=== PATIENT | female | born 1995 | race Caucasian/White ===

== ENCOUNTER 2018-10-27 23:35 | Emergency (ER) | payer BC, MEDICAID ==
[2018-10-27 23:47] VITALS: BP 107/68
--- NOTE | 2018-10-27 23:58 | EDM.PDOC ---
ED HPI GENERAL MEDICAL PROBLEM - General Chief Complaint: ENT Problem Stated Complaint: EAR PAIN Time Seen by Provider: 10/27/18 23:39 Source of Information: Reports: Patient History Limitations: Reports: No Limitations - History of Present Illness INITIAL COMMENTS - FREE TEXT/NARRATIVE: The patient presents with left ear pain. She as had a cough, congestion and runny nose but no fever. Now she has left ear pain. She thinks she has an ear infections. She as no history of ear infections. Onset: Gradual Duration: Day(s): Location: Reports: Other (Left ear) Quality: Reports: Sharp Severity: Moderate Improves with: Reports: None Worsens with: Reports: None Associated Symptoms: Reports: Cough. Denies: Chest Pain, Fever/Chills, Headaches, Nausea/Vomiting, Shortness of Breath Left Ear Pain Score (Numeric/FACES): 8 - Related Data Allergies Allergy/AdvReac Type Severity Reaction Status Date / Time No Known Allergies Allergy Verified 10/27/18 23:48 Home Meds: Home Meds . [No Known Home Meds] 07/27/16 [History] Past Medical History - Past Health History Medical/Surgical History: Denies Medical/Surgical History Social & Family History - Tobacco Use Smoking Status *Q: Never Smoker - Caffeine Use Caffeine Use: Reports: Coffee, Energy Drinks, Soda, Tea - Recreational Drug Use Recreational Drug Use: Yes Drug Use in Last 12 Months: Yes Recreational Drug Type: Reports: Marijuana/Hashish ED ROS ENT - Review of Systems Review Of Systems: See Below Constitutional: Reports: No Symptoms HEENT: Reports: Ear Pain Respiratory: Reports: No Symptoms Cardiovascular: Reports: No Symptoms Endocrine: Reports: No Symptoms GI/Abdominal: Reports: No Symptoms : Reports: No Symptoms Musculoskeletal: Reports: No Symptoms ED EXAM, ENT - Physical Exam Exam: See Below Exam Limited By: No Limitations General Appearance: Alert, No Apparent Distress Ears: Normal External Exam, Normal Canal, TM Bulging (left), TM Erythema (left) , TM Fluid (left) Nose: Normal Inspection Mouth/Throat: Pharyngeal Erythema Head: Atraumatic, Normocephalic Neck: Normal Inspection Respiratory/Chest: No Respiratory Distress, Lungs Clear, Normal Breath Sounds Cardiovascular: Regular Rate, Rhythm, No Edema, No Murmur GI/Abdominal: Soft, Non-Tender, No Organomegaly, No Mass Back: Normal Inspection Extremities: Normal Inspection Neurological: Alert, Oriented, No Motor/Sensory Deficits Course - Vital Signs Last Recorded V/S: Last Vital Signs Temp 97.2 F 10/27/18 23:44 Pulse 60 10/27/18 23:44 Resp 18 10/27/18 23:44 BP 107/68 10/27/18 23:44 Pulse Ox 100 10/27/18 23:44 Departure - Departure Time of Disposition: 00:05 Disposition: Home, Self-Care 01 Condition: Good Clinical Impression: Viral URI Left otitis media Qualifiers: Otitis media type: suppurative Chronicity: acute Recurrence: non-recurrent Spontaneous tympanic membrane rupture: with spontaneous rupture Qualified Code(s ): H66.012 - Acute suppurative otitis media with spontaneous rupture of ear drum , left ear - Discharge Information *PRESCRIPTION DRUG MONITORING PROGRAM REVIEWED*: Not Applicable *COPY OF PRESCRIPTION DRUG MONITORING REPORT IN PATIENT EMERALD: Not Applicable Referrals: Arcelia Gutierrez, [employer] [Primary Care Provider] - Additional Instructions: Take tylenol or motrin for pain or for any fevers. Take the amoxicillin 1, 000mg 2 times per day until gone. Please return if you are worse.
== END 2018-10-28 00:05 | disposition home or self-care (01) ==
LOC: JD.ED 23:35
DX: H66.012 Acute suppurative otitis media with spontaneous rupture of ear drum, left ear (principal); J06.9 Acute upper respiratory infection, unspecified
CPT/HCPCS: 99282; 99283

== ENCOUNTER 2019-08-07 01:12 | Emergency (ER) | payer BC, MEDICAID ==
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
[2019-08-07 01:33] VITALS: BP 103/62; PULSE 62
[2019-08-07] MEDS ORDERED: fentaNYL 100 MCG/2 ML SDV IVPUSH ONE (01:43)
[2019-08-07] MEDS ORDERED: fentaNYL 100 MCG/2 ML SDV IM STA (01:52)
--- NOTE | 2019-08-07 12:02 | CR ---
Chest: Two views of the chest were obtained. Comparison: No prior chest x-ray is available. Heart size and mediastinum are normal. Lungs are clear. Mild scoliosis is noted within the spine. No acute bony abnormality is appreciated. Impression: 1. Scoliosis. 2. Nothing acute is appreciated on two-view chest x-ray. Diagnostic code #2 This report was dictated in [place] Standard Time
--- NOTE | 2019-08-07 12:28 | CR ---
Left ribs: Two views of the left ribs were obtained. Comparison: No prior rib exam. Slight deformity noted within the 10th rib. This is suspicious for fracture. No additional rib abnormality is definitely seen. No pneumothorax is noted. Impression: 1. Findings suspicious for fracture within the left 10th rib. Diagnostic code #3 This report was dictated in [place] Standard Time
== END 2019-08-07 03:06 | disposition home or self-care (01) ==
LOC: JD.ED 01:12
DX: S29.9XXA Unspecified injury of thorax, initial encounter (principal); W51.XXXA Accidental striking against or bumped into by another person, initial encounter; Y92.511 Restaurant or cafe as the place of occurrence of the external cause; Z79.899 Other long term (current) drug therapy
CPT/HCPCS: 71046; 71100; 96372; 99284; J3010; 99283

== ENCOUNTER 2021-09-13 14:36 | Emergency (ER) | payer BC ==
[2021-09-13 15:09] VITALS: BP 129/84; PULSE 72
[2021-09-13] MEDS ORDERED: Ondansetron 4 MG/2 ML SDV IVPUSH ONE (15:27)
[2021-09-13] MEDS ORDERED: Sodium Chloride 0.9% 1,000 ML IV STA (15:27)
[2021-09-13] MEDS ORDERED: Sodium Chloride 0.9% 10 ML Syringe FLUSH PRN (15:27)
[2021-09-13] MEDS ORDERED: HYDROmorphone 1 MG/ML Syringe IVPUSH ONE (15:29)
[2021-09-13] MEDS ORDERED: Iopamidol 612 MG/ML 100 ML Bottle IVPUSH ONE (15:50)
[2021-09-13] MEDS ORDERED: Diatrizoate Meglumine/Diatrizoate Sodium 37% 120 ML Bottle PO ONE (15:50)
[2021-09-13 16:18] LABS: CORONAVIRUS COVID-19 NAA POSITIVE (NEGATIVE)
--- NOTE | 2021-09-13 18:36 | EDM.PDOC ---
ED HPI GENERAL MEDICAL PROBLEM - General Chief Complaint: Abdominal Pain Stated Complaint: ABDOMINAL PAIN Time Seen by Provider: 09/13/21 15:01 Source of Information: Reports: Patient History Limitations: Reports: No Limitations - History of Present Illness INITIAL COMMENTS - FREE TEXT/NARRATIVE: The patient presents with upper abdominal pain. This has been going on for about 3 to 4 months but worse the past 3 to 4 days. She also had fever and chills the past couple of days with a slight cough. She was seen at the clinic and an US was done on the of her RUQ and it shows no problem with the gallbladder. She continued to have pain so she came back. She has no diarrhea. She does have some dysuria. She still has her gallbladder and appendix. She has a history of alopecia. Onset: Gradual Duration: Week(s): Location: Reports: Abdomen Quality: Reports: Sharp Severity: Moderate Improves with: Reports: None Worsens with: Reports: None Associated Symptoms: Reports: Cough, Fever/Chills, Nausea/Vomiting. Denies: Chest Pain, Headaches, Loss of Appetite, Shortness of Breath Right Upper Abdomen Pain Score (Numeric/FACES): 7 - Related Data Allergies Allergy/AdvReac Type Severity Reaction Status Date / Time No Known Allergies Allergy Verified 09/13/21 15:03 Home Meds: Home Meds Hydrocodone/Acetaminophen [Hydrocodone-Acetamin 5-325 mg] 1 - 2 each PO Q6H PRN #15 tablet 09/13/21 [Rx] Multivitamin [Multi-Vitamin Daily] 1 tab PO DAILY 09/13/21 [History] Ondansetron [Zofran ODT] 4 mg PO Q6H PRN #20 tab.dis 09/13/21 [Rx] Past Medical History - Past Health History Medical/Surgical History: Denies Medical/Surgical History HEENT History: Reports: Other (See Below) Other HEENT History: bloody noses. 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 Dermatologic History: Reports: Other (See Below) Other Dermatologic History: acne. - Infectious Disease History Infectious Disease History: Reports: Novel Coronavirus Social & Family History - Tobacco Use Tobacco Use Status *Q: Never Tobacco User Second Hand Smoke Exposure: No - Caffeine Use Caffeine Use: Reports: None - Alcohol Use Days Per Week of Alcohol Use: 2 Number of Drinks Per Day: 4 Total Drinks Per Week: 8 - Recreational Drug Use Recreational Drug Use: Yes Recreational Drug Type: Reports: Marijuana/Hashish Other Recreational Drug Type: medical marijuana Recreational Drug Use Frequency: Daily ED ROS GENERAL - Review of Systems Review Of Systems: See Below Constitutional: Reports: Fever, Chills HEENT: Reports: No Symptoms Respiratory: Reports: No Symptoms Cardiovascular: Reports: No Symptoms GI/Abdominal: Reports: Abdominal Pain : Reports: Dysuria Musculoskeletal: Reports: No Symptoms Skin: Reports: No Symptoms Neurological: Reports: No Symptoms ED EXAM, GI/ABD - Physical Exam Exam: See Below Exam Limited By: No Limitations General Appearance: Alert, No Apparent Distress Ears: Normal External Exam Nose: Normal Inspection Head: Atraumatic, Normocephalic Neck: Normal Inspection Respiratory/Chest: No Respiratory Distress, Lungs Clear, Normal Breath Sounds Cardiovascular: Regular Rate, Rhythm, No Edema, No Murmur GI/Abdominal Exam: Soft, Tender (Mild tenderness to the right upper abdomen) Back Exam: Normal Inspection Extremities: Normal Inspection Course - Vital Signs Last Recorded V/S: Last Vital Signs Temp 99.0 F 09/13/21 15:00 Pulse 72 09/13/21 15:00 Resp 16 09/13/21 15:00 BP 129/84 09/13/21 15:00 Pulse Ox 96 09/13/21 15:00 - Orders/Labs/Meds Orders: Active Orders 24 hr Category Date Time Status Peripheral IV Care [RC] . DIRECTED Care 09/13/21 15:28 Active Abdomen Pelvis w Cont [CT] Stat Exams 09/13/21 15:27 Taken Sodium Chloride 0.9% [Saline Flush] Med 09/13/21 15:27 Active 10 ml FLUSH ASDIRECTED PRN ED Antiemetic Medication Reflex [OM.PC] Stat Oth 09/13/21 15:27 Ordered Peripheral IV Insertion Adult [OM.PC] Stat Oth 09/13/21 15:27 Ordered Medication Orders Sodium Chloride (Sodium Chloride 0.9% 10 Ml Syringe) 10 ml FLUSH ASDIRECTED PRN PRN Reason: Keep Vein Open Last Admin: 09/13/21 15:40 Dose: 10 ml Documented by: JT Labs: Laboratory Tests 09/13/21 09/13/21 09/13/21 Range/Units 15:10 15:10 15:10 WBC 2.10 L* (3.98-10.04) K/mm3 RBC 4.43 (3.98-5.22) M/mm3 Hgb 13.3 D (11.2-15.7) gm/dl Hct 39.6 (34.1-44.9) % MCV 89.4 (79.4-94.8) fl MCH 30.0 (25.6-32.2) pg MCHC 33.6 (32.2-35.5) g/dl RDW Std Deviation 42.0 (36.4-46.3) fL Plt Count 157 L (182-369) K/mm3 MPV 10.6 (9.4-12.3) fl Neut % (Auto) 39.5 (34.0-71.1) % Lymph % (Auto) 32.9 (19.3-51.7) % Frio % (Auto) 27.6 H (4.7-12.5) % Eos % (Auto) 0 L (0.7-5.8) Baso % (Auto) 0.0 L (0.1-1.2) % Neut # (Auto) 0.83 L (1.56-6.13) K/mm3 Lymph # (Auto) 0.69 L (1.18-3.74) K/mm3 Frio # (Auto) 0.58 H (0.24-0.36) K/mm3 Eos # (Auto) 0.00 L (0.04-0.36) K/mm3 Baso # (Auto) 0.00 L (0.01-0.08) K/mm3 Manual Slide Review Abnormal smear Sodium 142 (136-145) mEq/L Potassium 3.3 L (3.5-5.1) mEq/L Chloride 104 (98-107) mEq/L Carbon Dioxide 25 (21-32) mEq/L Anion Gap 16.3 H (5-15) BUN 7 (7-18) mg/dL Creatinine 0.8 (0.55-1.02) mg/dL Est Cr Clr Drug Dosing 104.54 mL/min Estimated GFR (MDRD) > 60 (>60) mL/min BUN/Creatinine Ratio 8.8 L (14-18) Glucose 89 (70-99) mg/dL Calcium 8.9 (8.5-10.1) mg/dL Total Bilirubin 0.3 (0.2-1.0) mg/dL AST 21 (15-37) U/L ALT 24 (14-59) U/L Alkaline Phosphatase 66 (46-116) U/L Total Protein 7.8 (6.4-8.2) g/dl Albumin 3.9 (3.4-5.0) g/dl Globulin 3.9 gm/dL Albumin/Globulin Ratio 1.0 (1-2) Lipase 50 L (73-393) U/L HCG, Qual (NEGATIVE) Urine Color (Yellow) Urine Appearance (Clear) Urine pH (5.0-8.0) Ur Specific [place] (1.005-1.030) Urine Protein (Negative) Urine Glucose (UA) (Negative) Urine Ketones (Negative) Urine Occult Blood (Negative) Urine Nitrite (Negative) Urine Bilirubin (Negative) Urine Urobilinogen (0.2-1.0) Ur Leukocyte Esterase (Negative) Urine RBC (0-5) /hpf Urine WBC (0-5) /hpf Ur Epithelial Cells (0-5) /hpf Urine Bacteria (FEW) /hpf Urine Mucus (FEW) /hpf Influenza Type A RNA Positive H (NEGATIVE) Influenza Type B RNA Negative (NEGATIVE) SARS-CoV-2 RNA (FRANDY) Positive H (NEGATIVE) 09/13/21 09/13/21 Range/Units 15:10 16:36 WBC (3.98-10.04) K/mm3 RBC (3.98-5.22) M/mm3 Hgb (11.2-15.7) gm/dl Hct (34.1-44.9) % MCV (79.4-94.8) fl MCH (25.6-32.2) pg MCHC (32.2-35.5) g/dl RDW Std Deviation (36.4-46.3) fL Plt Count (182-369) K/mm3 MPV (9.4-12.3) fl Neut % (Auto) (34.0-71.1) % Lymph % (Auto) (19.3-51.7) % Frio % (Auto) (4.7-12.5) % Eos % (Auto) (0.7-5.8) Baso % (Auto) (0.1-1.2) % Neut # (Auto) (1.56-6.13) K/mm3 Lymph # (Auto) (1.18-3.74) K/mm3 Frio # (Auto) (0.24-0.36) K/mm3 Eos # (Auto) (0.04-0.36) K/mm3 Baso # (Auto) (0.01-0.08) K/mm3 Manual Slide Review Sodium (136-145) mEq/L Potassium (3.5-5.1) mEq/L Chloride (98-107) mEq/L Carbon Dioxide (21-32) mEq/L Anion Gap (5-15) BUN (7-18) mg/dL Creatinine (0.55-1.02) mg/dL Est Cr Clr Drug Dosing mL/min Estimated GFR (MDRD) (>60) mL/min BUN/Creatinine Ratio (14-18) Glucose (70-99) mg/dL Calcium (8.5-10.1) mg/dL Total Bilirubin (0.2-1.0) mg/dL AST (15-37) U/L ALT (14-59) U/L Alkaline Phosphatase (46-116) U/L Total Protein (6.4-8.2) g/dl Albumin (3.4-5.0) g/dl Globulin gm/dL Albumin/Globulin Ratio (1-2) Lipase (73-393) U/L HCG, Qual Negative (NEGATIVE) Urine Color Yellow (Yellow) Urine Appearance Clear (Clear) Urine pH 6.5 (5.0-8.0) Ur Specific [place] 1.010 (1.005-1.030) Urine Protein Negative (Negative) Urine Glucose (UA) Negative (Negative) Urine Ketones 2+ H (Negative) Urine Occult Blood Trace-intact H (Negative) Urine Nitrite Negative (Negative) Urine Bilirubin Negative (Negative) Urine Urobilinogen 0.2 (0.2-1.0) Ur Leukocyte Esterase Negative (Negative) Urine RBC 0-5 (0-5) /hpf Urine WBC 5-10 H (0-5) /hpf Ur Epithelial Cells 20-30 H (0-5) /hpf Urine Bacteria Many H (FEW) /hpf Urine Mucus Rare (FEW) /hpf Influenza Type A RNA (NEGATIVE) Influenza Type B RNA (NEGATIVE) SARS-CoV-2 RNA (FRANDY) (NEGATIVE) Meds: Medications Generic Name Dose Route Start Last Admin Trade Name Juan PRN Reason Stop Dose Admin Sodium Chloride 10 ml 09/13/21 15:27 09/13/21 15:40 Sodium Chloride 0.9% 10 Ml Syringe FLUSH 10 ml ASDIRECTED PRN Administration Keep Vein Open Discontinued Medications Generic Name Dose Route Start Last Admin Trade Name Juan PRN Reason Stop Dose Admin Diatrizoate Meglum/Diatrizoate Sod 90 ml 09/13/21 15:50 Diatrizoate Meglumine/Diatrizoate Sodium 37% 120 Ml Bottle PO 09/13/21 15:51 ONETIME ONE Hydromorphone HCl 1 mg 09/13/21 15:29 09/13/21 15:40 Hydromorphone 1 Mg/Ml Syringe IVPUSH 09/13/21 15:30 1 mg ONETIME ONE Administration Sodium Chloride 1,000 mls @ 1,000 mls/hr 09/13/21 15:27 09/13/21 15:39 Normal Saline IV 09/13/21 16:26 1,000 mls/hr .BOLUS STA Administration Iopamidol 100 ml 09/13/21 15:50 Iopamidol 612 Mg/Ml 100 Ml Bottle IVPUSH 09/13/21 15:51 ONETIME ONE Ondansetron HCl 4 mg 09/13/21 15:27 09/13/21 15:39 Ondansetron 4 Mg/2 Ml Sdv IVPUSH 09/13/21 15:28 4 mg ONETIME ONE Administration - Re-Assessments/Exams Free Text/Narrative Re-Assessment/Exam: 09/13/21 18:37 I ordered an IV NS 1L bolus, zofran 4mg IV, dilaudid 0.5mg IV, labs, UA and a CT of her abdomen and pelvis with IV and oral contrast. Her WBC was low at 2.1. Her platelets are low at 157. Her K was low at 3.3. Her anion gap was elevated at 16.3. Her lipase was low at 50. Her HCG is negative. Her UA shows no UTI. Her influenza A is positive and her COVID was positive. 09/13/21 18:[address] shows old left 9th and 10th rib fractures. IUD in good position. No appendicitis. 09/13/21 18:49 She feels a little better. She did test positive for COVID in July so the positive COVID today is from that infection. She is influenza A positive. She is out of the window for tamiflu. I will give her something for nausea and pain at home. Departure - Departure Time of Disposition: 18:50 Disposition: Home, Self-Care 01 Condition: Good Clinical Impression: Influenza A Abdominal pain Qualifiers: Abdominal location: right upper quadrant Qualified Code(s): R10.11 - Right upper quadrant pain - Discharge Information *PRESCRIPTION DRUG MONITORING PROGRAM REVIEWED*: Not Applicable *COPY OF PRESCRIPTION DRUG MONITORING REPORT IN PATIENT EMERALD: Not Applicable Prescriptions: Hydrocodone/Acetaminophen [Hydrocodone-Acetamin 5-325 mg] 1 - 2 each PO Q6H PRN #15 tablet PRN Reason: Pain Ondansetron [Zofran ODT] 4 mg PO Q6H PRN #20 tab.dis PRN Reason: Nausea\vomiting Referrals: PCP,None [Primary Care Provider] - Juan Chu MD [Physician] - 1 Week Forms: ED Department Discharge Additional Instructions: Drink plenty of fluids. Take tylenol or motrin for pain. If that does not help, try they hydrocodone. Take the zofran every 6 hours as needed for nausea and vomiting. Follow up with Dr Chu if you are not better within a week. Please return if you are worse. Sepsis Event Note (ED) - Evaluation Sepsis Screening Result: No Definite Risk - Focused Exam Vital Signs: Vital Signs Temp Pulse Resp BP Pulse Ox 09/13/21 15:00 99.0 F 72 16 129/84 96 - My Orders Last 24 Hours: My Active Orders 09/13/21 15:27 Abdomen Pelvis w Cont [CT] Stat Sodium Chloride 0.9% [Saline Flush] 10 ml FLUSH ASDIRECTED PRN ED Antiemetic Medication Reflex [OM.PC] Stat Peripheral IV Insertion Adult [OM.PC] Stat 09/13/21 15:28 Peripheral IV Care [RC] . DIRECTED - Assessment/Plan Last 24 Hours: My Active Orders 09/13/21 15:27 Abdomen Pelvis w Cont [CT] Stat Sodium Chloride 0.9% [Saline Flush] 10 ml FLUSH ASDIRECTED PRN ED Antiemetic Medication Reflex [OM.PC] Stat Peripheral IV Insertion Adult [OM.PC] Stat 09/13/21 15:28 Peripheral IV Care [RC] . DIRECTED
--- NOTE | 2021-09-14 09:37 | CT ---
EXAM: CT ABDOMEN PELVIS WITH CONTRAST LOCATION: [facility] [employer] DATE/TIME: 09/13/2021 4:11 PM INDICATION: Ruq pain, recent us was negative COMPARISON: None. TECHNIQUE: CT scan of the abdomen and pelvis was performed following injection of IV contrast. Multiplanar reformats were obtained. Dose reduction techniques were used. CONTRAST: isovue 300 FINDINGS: LOWER CHEST: Normal. HEPATOBILIARY: Normal. PANCREAS: Normal. SPLEEN: Normal. ADRENAL GLANDS: Normal. KIDNEYS/BLADDER: Normal. BOWEL: No appendicitis. LYMPH NODES: Normal. VASCULATURE: Unremarkable. PELVIC ORGANS: IUD in the central uterus. MUSCULOSKELETAL: Old left ninth and 10th posterior rib fractures.1 IMPRESSION: 1. Old left ninth and 10th posterior rib fractures. 2. IUD in good location. 3. No appendicitis. SIGNED BY: Mauro Yusuf MD 09/13/2021 5:53 PM [facility]
== END 2021-09-13 19:00 | disposition home or self-care (01) ==
LOC: JD.ED 14:36
DX: U07.1 COVID-19 (principal); J10.1 Influenza due to other identified influenza virus with other respiratory manifestations; R10.11 Right upper quadrant pain
CPT/HCPCS: 0240U; 36415; 74177; 80053; 81001; 83690; 84703; 85025; 96374; 96375; 99284; J1170; J2405; J7030; Q9963

== ENCOUNTER 2022-03-28 07:48 | Emergency (ER) | payer OTHER, BC ==
[2022-03-28 09:07] VITALS: BP 110/63; PULSE 81
== END 2022-03-28 10:30 | disposition home or self-care (01) ==
LOC: JD.ED 07:48
DX: S06.0X0A Concussion without loss of consciousness, initial encounter (principal); Z86.16 Personal history of COVID-19; V86.56XA Driver of dirt bike or motor/cross bike injured in nontraffic accident, initial encounter; Y92.410 Unspecified street and highway as the place of occurrence of the external cause
CPT/HCPCS: 99282; 99283

== ENCOUNTER 2025-06-09 10:09 | Day surgery (SDC) | payer BC, OTHER ==
[~2025-06-09 10:09] MED LIST: Lactated Ringers 1,000 ML IV SCH; Sodium Bicarbonate 8.4% 50 MEQ/50 ML SDV ONE; Sodium Chloride 0.9% 10 ML Syringe FLUSH PRN; Sodium Chloride 0.9% 10 ML Syringe FLUSH SCH
[2025-06-09] MEDS ORDERED: Midazolam 1 MG/ML 2 ML SDV ONE (10:26)
[2025-06-09] MEDS ORDERED: fentaNYL 100 MCG/2 ML SDV ONE (10:26)
[2025-06-09] MEDS ORDERED: Propofol 200 MG/20 ML SDV ONE (10:26)
[2025-06-09] MEDS: Lactated Ringers 1,000 ML IV SCH (10:45)
[2025-06-09] MEDS: Albuterol 0.083% 2.5 MG/3 ML Neb Soln NEB ONE (12:10)
[2025-06-09] MEDS ORDERED: Lidocaine 1% 2 ML ONE (13:12)
[2025-06-09] MEDS ORDERED: dexmedeTOMIDine HCl 200 MCG/2 ML SDV ONE (13:14)
[2025-06-09 14:18] VITALS: BP 132/70; PULSE 75
== END 2025-06-09 14:15 | disposition home or self-care (01) ==
LOC: JD.SDS 10:09
PROVIDERS: ATTEND Orthopaedic Surgery
DX: M67.432 Ganglion, left wrist (principal); Z87.891 Personal history of nicotine dependence; Z79.899 Other long term (current) drug therapy
CPT/HCPCS: 25111; J0690; J2003; J2250; J2704; J3010; J7120; J7613; 01810; A9270-GY; J0665; J3490